=== PATIENT | male | born 1955 | race Hispanic/Latino ===

== ENCOUNTER 2018-12-15 13:25 | Inpatient (IN) | payer MEDICARE | END 2018-12-19 18:29 | disposition home or self-care (01) | LOC: EDH 13:25 → 2DH 12-16 11:28 → EDHIP 15:15 | PROC: B2111ZZ Fluoroscopy of Multiple Coronary Arteries using Low Osmolar Contrast (ICD-10-PCS; principal; ~2018-12-15) | PROC: B3101ZZ Fluoroscopy of Thoracic Aorta using Low Osmolar Contrast (ICD-10-PCS; ~2018-12-15) | DX: I11.9 Hypertensive heart disease without heart failure (principal); F17.200 Nicotine dependence, unspecified, uncomplicated ==

== ENCOUNTER 2019-07-30 18:42 | Emergency (ER) | payer OTHER ==
[~2019-07-30 18:42] MED LIST: ASPI-891 PO; ATOR40TA69 PO; LOSA50TA2 PO; METO50 PO
[2019-07-30 19:14] LABS: APPEARANCE,URINE Clear (CLEAR); BILIRUBIN,URINE Negative (NEGATIVE); COLOR,URINE Yellow (YELLOW); GLUCOSE, URINE (UA) Negative (NEGATIVE); KETONES,URINE Negative (NEGATIVE); LEUKOCYTE ESTERASE ,URINE Negative (NEGATIVE); NITRATE,URINE Negative (NEGATIVE); OCCULT BLOOD,URINE Negative (NEGATIVE); PROTEIN,URINE Trace mg/dL (NEGATIVE)
[2019-07-30 19:36] LABS: BACTERIA,URINE Few /HPF (None Seen); RBC,URINE 0-1 /HPF (0-1)
[2019-07-30 19:37] LABS: MUCUS,URINE Moderate LPF (None Seen); SQUAMOUS EPITHELIAL CELL,UR Few /HPF (0-2)
[2019-07-30 19:39] LABS: BASOPHILS % (AUTO) 0.6 % (0.0-5.0); EOSINOPHILS % (AUTO) 2.8 % (0.0-8.0); HEMATOCRIT 42.6 % (42-54); LYMPHOCYTES % (AUTO) 21.2 % (21.0-51.0); MEAN CORPUSCULAR HEMOGLOBIN 26.7 pg (27.0-33.0); MEAN CORPUSCULAR HGB CONC 33.7 g/dL (32.0-36.0); MEAN CORPUSCULAR VOLUME 79.4 fL (79-99); MONOCYTES % (AUTO) 7.2 % (3.0-13.0); NEUTROPHILS % (AUTO) 68.2 % (40.0-77.0); NUCLEATED RED BLOOD CELLS 0.1 % (0.0-0.19); PLATELET COUNT (AUTO) 181 K/uL (130-400); RED BLOOD CELL COUNT(AUTO) 5.37 MIL/uL (4.50-6.20); RED CELL DISTRIBUTION WIDTH 14.8 % (11.0-15.5); WHITE BLOOD COUNT (AUTO) 8.9 K/uL (4.8-10.8)
[2019-07-30 19:49] LABS: CREATININE 1.3 mg/dL (0.5-1.5); POTASSIUM 3.6 mmol/L (3.5-5.1)
[2019-07-30 19:55] LABS: ALBUMIN 4.1 g/dL (3.5-5.0); BILIRUBIN,DIRECT 0.1 mg/dL (0.0-0.3); BILIRUBIN,TOTAL 0.5 mg/dL (0.2-1.0); TOTAL PROTEIN, SERUM 8.4 g/dL (6.0-8.3)
[2019-07-30] MEDS ORDERED: SODIUM CHLORIDE 0.9% 1000ML 1,000 ML IV ONE (20:03)
[2019-07-30] MEDS ORDERED: ACETAMINOPHEN 325 MG TAB ONE (21:52)
== END 2019-07-30 23:19 | disposition home or self-care (01) ==
LOC: EDH 18:42
DX: E86.0 Dehydration (principal); R53.1 Weakness; R19.7 Diarrhea, unspecified
CPT/HCPCS: 36415; 71046; 80048; 80076; 81001; 82550; 83880; 84484 ×2; 85025; 93005 ×2; 96360; 96361; 99285; J7030

== ENCOUNTER → 2019-11-24 | Outpatient (CLI) | payer OTHER, MEDICARE | END | disposition home or self-care (01) | LOC: SHCH 09:24 | PROVIDERS: ATTEND Internal Medicine Cardiovascular Disease | DX: I65.23 Occlusion and stenosis of bilateral carotid arteries (principal); I73.9 Peripheral vascular disease, unspecified | CPT/HCPCS: 93880 ==

== ENCOUNTER → 2020-01-03 | Outpatient (CLI) | payer OTHER, MEDICARE | END | disposition home or self-care (01) | LOC: SHCH 10:05 | PROVIDERS: ATTEND Internal Medicine Cardiovascular Disease | DX: I10 Essential (primary) hypertension (principal) | CPT/HCPCS: 93306; 93356 ==

== ENCOUNTER → 2020-08-23 | Outpatient (CLI) | payer OTHER | END | disposition home or self-care (01) | LOC: RAH 12:55 | PROVIDERS: ATTEND Internal Medicine Cardiovascular Disease | DX: Z13.6 Encounter for screening for cardiovascular disorders (principal) | CPT/HCPCS: 75571 ==

== ENCOUNTER → 2020-10-09 | Outpatient (CLI) | payer OTHER, MEDICARE ==
[~2020-10-09] MED LIST changes: +IOHEXOL-350 50ML VIAL IV ONE
== END | disposition home or self-care (01) ==
LOC: RAH 07:50
PROVIDERS: ATTEND Internal Medicine Cardiovascular Disease
DX: I74.8 Embolism and thrombosis of other arteries (principal); I65.23 Occlusion and stenosis of bilateral carotid arteries; I73.9 Peripheral vascular disease, unspecified; Z95.1 Presence of aortocoronary bypass graft
CPT/HCPCS: 70498; Q9967

== ENCOUNTER → 2020-11-08 | Outpatient (CLI) | payer OTHER, MEDICARE ==
[~2020-11-08] MED LIST changes: -IOHEXOL-350 50ML VIAL IV ONE
== END | disposition home or self-care (01) ==
LOC: SHCH 14:26
PROVIDERS: ATTEND Internal Medicine Cardiovascular Disease
DX: I73.9 Peripheral vascular disease, unspecified (principal)
CPT/HCPCS: 93925

== ENCOUNTER 2021-06-12 05:38 | Day surgery (SDC) | payer OTHER ==
[~2021-06-12] VITALS: Ht 167.6 cm; Wt 78.9 kg
[2021-06-12] MEDS ORDERED: 0.9%NACL 1000ML 1,000 ML IV ONE (06:32)
[2021-06-12 06:37] VITALS: BP 122/50
[2021-06-12] MEDS ORDERED: ASCO500C18 PO (07:12)
[2021-06-12] MEDS ORDERED: PROPOFOL 10 MG/ML 20ML VIAL IV ONE ×2 (07:12)
[2021-06-12] MEDS ORDERED: LIDOCAINE PF 100MG/5ML (2%) SYRINGE 5ML ONE (07:12)
[2021-06-12] MEDS ORDERED: SERT-440 PO (07:12)
[2021-06-12] MEDS ORDERED: HYDR25TA PO (07:12)
[2021-06-12] MEDS ORDERED: MULT-1203 PO (07:12)
[2021-06-12] MEDS ORDERED: OMEG-148 PO (07:12)
[2021-06-12] MEDS ORDERED: MV-M1TAB20 PO (07:12)
[2021-06-12] MEDS ORDERED: LIDOCAINE HCL 1% 20 ML VIAL ONE (07:13)
[2021-06-12] MEDS ORDERED: GLYCOPYRROLATE 1 MG/5 ML SYRINGE ONE (07:14)
[2021-06-12] MEDS ORDERED: EPHEDRINE SULFATE 50 MG/ML AMPULE ONE (07:25)
[2021-06-12 07:40] VITALS: BP 99/46
[2021-06-12 07:45] VITALS: BP 123/56
[2021-06-12 08:00] VITALS: BP 128/55
== END 2021-06-12 08:10 | disposition home or self-care (01) ==
LOC: ENDO 05:38 → DAH 05:38 → ENDO 08:10
PROVIDERS: ATTEND Internal Medicine Gastroenterology
DX: Z12.11 Encounter for screening for malignant neoplasm of colon (principal); K62.1 Rectal polyp; K29.70 Gastritis, unspecified, without bleeding; D64.9 Anemia, unspecified; I10 Essential (primary) hypertension; F41.9 Anxiety disorder, unspecified; R14.0 Abdominal distension (gaseous); E78.2 Mixed hyperlipidemia; I25.10 Atherosclerotic heart disease of native coronary artery without angina pectoris; Z79.82 Long term (current) use of aspirin; Z20.822 Contact with and (suspected) exposure to COVID-19; Z79.899 Other long term (current) drug therapy
CPT/HCPCS: 43239; 45380; 87635; 88305; 88342; A4215 ×2; A4221; A4222; A4223; A4606; A4620; A4657; A4663; C9803; J2001; J2704 ×2; J3490 ×2; J7030

== ENCOUNTER → 2023-02-21 | Outpatient (CLI) | payer OTHER, MEDICARE ==
[~2023-02-21] MED LIST changes: +ASCO500C18 PO; +HYDR25TA PO; +MULT-1203 PO; +MV-M1TAB20 PO; +OMEG-148 PO; +SERT-440 PO
== END | disposition home or self-care (01) ==
LOC: SHCH 13:09
PROVIDERS: ATTEND Internal Medicine Cardiovascular Disease
DX: I11.9 Hypertensive heart disease without heart failure (principal); I25.110 Atherosclerotic heart disease of native coronary artery with unstable angina pectoris; E78.5 Hyperlipidemia, unspecified; Z95.2 Presence of prosthetic heart valve
CPT/HCPCS: 93306

== ENCOUNTER → 2023-03-04 | Outpatient (CLI) | payer OTHER, MEDICARE | END | disposition home or self-care (01) | LOC: SHCH 10:43 | PROVIDERS: ATTEND Internal Medicine Cardiovascular Disease | DX: I65.22 Occlusion and stenosis of left carotid artery (principal); I25.10 Atherosclerotic heart disease of native coronary artery without angina pectoris; Z95.828 Presence of other vascular implants and grafts | CPT/HCPCS: 93880 ==

== ENCOUNTER → 2023-03-21 | Outpatient (CLI) | payer OTHER, MEDICARE ==
[~2023-03-21] MED LIST changes: +LOSA-418 PO; -LOSA50TA2 PO
[2023-03-21 12:18] LABS: ALBUMIN 4.2 g/dL (3.5-5.0); CREATININE 1.2 mg/dL (0.5-1.5); TOTAL PROTEIN, SERUM 8.2 g/dL (6.0-8.3)
== END | disposition home or self-care (01) ==
LOC: LAB 08:29
PROVIDERS: ATTEND Internal Medicine Cardiovascular Disease
DX: I65.23 Occlusion and stenosis of bilateral carotid arteries (principal)
CPT/HCPCS: 36415; 80053

== ENCOUNTER → 2023-03-31 | Outpatient (CLI) | payer OTHER, MEDICARE ==
[~2023-03-31] MED LIST changes: +IOHEXOL 350 MG/ML 100ML INFUS..BTL IV ONE
== END | disposition home or self-care (01) ==
LOC: RAH 09:17
PROVIDERS: ATTEND Internal Medicine Cardiovascular Disease
DX: I65.23 Occlusion and stenosis of bilateral carotid arteries (principal)
CPT/HCPCS: 70498; Q9967

== ENCOUNTER 2023-05-27 10:17 | Inpatient (IN) | payer OTHER, MEDICARE ==
[~2023-05-27] VITALS: Ht 167.6 cm; Wt 77.5 kg
[~2023-05-27 10:17] MED LIST changes: -IOHEXOL 350 MG/ML 100ML INFUS..BTL IV ONE
[2023-05-27 10:39] LABS: BASOPHILS % (AUTO) 0.4 % (0.0-5.0); EOSINOPHILS % (AUTO) 3.7 % (0.0-8.0); HEMATOCRIT 35.7 % (42-54); MEAN CORPUSCULAR HEMOGLOBIN 26.4 pg (27.0-33.0); MEAN CORPUSCULAR HGB CONC 33.3 g/dL (32.0-36.0); MEAN CORPUSCULAR VOLUME 79.3 fL (79-99); MONOCYTES % (AUTO) 5.4 % (3.0-13.0); NEUTROPHILS % (AUTO) 70.1 % (40.0-77.0); PLATELET COUNT (AUTO) 203 K/uL (130-400); RED CELL DISTRIBUTION WIDTH 12.9 % (11.0-15.5); WHITE BLOOD COUNT (AUTO) 8.5 K/uL (4.8-10.8)
[2023-05-27 10:58] LABS: ALBUMIN 3.6 g/dL (3.5-5.0); CREATININE 1.1 mg/dL (0.5-1.5); POTASSIUM 3.3 mmol/L (3.5-5.1); TOTAL PROTEIN, SERUM 7.5 g/dL (6.0-8.3)
[2023-05-27] MEDS ORDERED: ENOXAPARIN SODIUM 80 MG/0.8 ML SQ ONE (11:30)
[2023-05-27] MEDS ORDERED: NITROGLYCERIN 1GM OINT 1 INCH/1GM TD ONE (11:30)
[2023-05-27] MEDS ORDERED: MAGNESIUM 2GM PREMIX 50ML 50 ML IV PRN (12:00)
[2023-05-27] MEDS ORDERED: POTASSIUM CHLORIDE 10% ELIXIR 20 MEQ/15 ML UDCUP PO PRN (12:00)
[2023-05-27] MEDS ORDERED: POTASSIUM CHLORIDE 20MEQ/100ML 100 ML IV PRN (12:00)
[2023-05-27] MEDS ORDERED: ACETAMINOPHEN 325 MG TAB PO PRN ×2 (12:00)
[2023-05-27] MEDS ORDERED: ONDANSETRON 4MG INJ IV PRN (12:00)
[2023-05-27] MEDS ORDERED: KCL 20 MEQ ERTAB PO PRN (12:00)
[2023-05-27] MEDS ORDERED: LACTULOSE 20 GM/30 ML UDCUP PO PRN (12:00)
[2023-05-27] MEDS ORDERED: METO50TA18 PO (12:23)
[2023-05-27] MEDS ORDERED: ASPI-1197 PO (12:23)
[2023-05-27] MEDS ORDERED: CLOP-31 PO (12:23)
[2023-05-27] MEDS ORDERED: HYDR25TA PO (12:23)
[2023-05-27] MEDS ORDERED: LOSA50TA64 PO (12:23)
[2023-05-27] MEDS ORDERED: SERT-440 PO (12:23)
[2023-05-27 12:26] LABS: APPEARANCE,URINE CLEAR (CLEAR); BILIRUBIN,URINE NEGATIVE (NEGATIVE); COLOR,URINE YELLOW (YELLOW); GLUCOSE, URINE (UA) NEGATIVE (NEGATIVE); KETONES,URINE NEGATIVE (NEGATIVE); LEUKOCYTE ESTERASE ,URINE NEGATIVE Leu/uL (NEGATIVE); NITRATE,URINE NEGATIVE (NEGATIVE); OCCULT BLOOD,URINE NEGATIVE (NEGATIVE); PH,URINE 5.5 (5.0-8.0); PROTEIN,URINE 20 mg/dL (NEGATIVE); UROBILINOGEN,URINE 0.2 mg/dL (0.2-1.0)
[2023-05-27 12:30] LABS: HEMOGLOBIN A1C 5.8 % (4.0-6.0)
[2023-05-27 12:47] LABS: MUCUS,URINE RARE LPF (None Seen)
[2023-05-27 12:55] LABS: INR 0.96 (0.85-1.15); PROTHROMBIN TIME 11.2 SEC (9.6-11.6)
[2023-05-27 12:57] LABS: PARTIAL THROMBOPLASTIN TIME 30.9 SEC (26.3-35.5)
[2023-05-27] MEDS: INSULIN HUMULIN R 100 UNIT/ML 3ML SQ SCH ×3 (16:30→21:15)
[2023-05-27 20:50] VITALS: BP 122/58; PULSE 50; RESP 20
[2023-05-27] MEDS ORDERED: ATORVASTATIN 20 MG TABLET PO SCH (21:00)
[2023-05-27 23:38] VITALS: BP 115/50; PULSE 59; RESP 20
[2023-05-28 04:00] VITALS: BP 116/51; PULSE 54; RESP 20
[2023-05-28 05:32] LABS: BASOPHILS % (AUTO) 0.3 % (0.0-5.0); EOSINOPHILS % (AUTO) 3.6 % (0.0-8.0); LYMPHOCYTES % (AUTO) 27.1 % (21.0-51.0); MEAN CORPUSCULAR HEMOGLOBIN 26.5 pg (27.0-33.0); MEAN CORPUSCULAR VOLUME 80.1 fL (79-99); MONOCYTES % (AUTO) 8.4 % (3.0-13.0); NEUTROPHILS % (AUTO) 60.3 % (40.0-77.0); PLATELET COUNT (AUTO) 173 K/uL (130-400); RED BLOOD CELL COUNT(AUTO) 4.12 MIL/uL (4.50-6.20); WHITE BLOOD COUNT (AUTO) 8.7 K/uL (4.8-10.8)
[2023-05-28 05:57] LABS: CREATININE 1.1 mg/dL (0.5-1.5); POTASSIUM 3.3 mmol/L (3.5-5.1)
[2023-05-28] MEDS ORDERED: DOCUSATE SODIUM 100 MG CAP PO PRN (06:30)
[2023-05-28 08:00] VITALS: BP 137/57; PULSE 53; RESP 18
[2023-05-28] MEDS ORDERED: PANTOPRAZOLE 40 MG/VIAL IVP SCH (09:00)
[2023-05-28] MEDS ORDERED: ENOXAPARIN SODIUM 40 MG/0.4 ML SYRINGE SQ SCH (09:00)
[2023-05-28] MEDS ORDERED: ASPIRIN 81MG CHEW TAB PO SCH (09:00)
[2023-05-28] MEDS ORDERED: CLOPIDOGREL 75MG TAB PO SCH (09:00)
== END 2023-05-28 10:15 | disposition home or self-care (01) | DRG 282 ==
LOC: EDH 10:17 → EDHIP 11:46 → 4DH 20:49
PROVIDERS: ADMIT Hospitalist; ATTEND Hospitalist
DX: I21.4 Non-ST elevation (NSTEMI) myocardial infarction (principal); E87.6 Hypokalemia; E11.9 Type 2 diabetes mellitus without complications; F17.200 Nicotine dependence, unspecified, uncomplicated; K59.09 Other constipation; F32.A Depression, unspecified; E78.00 Pure hypercholesterolemia, unspecified; Z95.1 Presence of aortocoronary bypass graft
CPT/HCPCS: 36415; 71045; 74018; 80048; 80053; 80061; 81001; 82948; 83036; 83880; 84484; 85025; 85610; 85730; 93005; C9113; G0378; J1650

== ENCOUNTER → 2023-06-16 | Outpatient (CLI) | payer OTHER, MEDICARE ==
[~2023-06-16] MED LIST changes: -ASCO500C18 PO; +ASPI-1197 PO; -ASPI-891 PO; -ATOR40TA69 PO; +CLOP-31 PO; -LOSA-418 PO; +LOSA50TA64 PO; -METO50 PO; +METO50TA18 PO; -MULT-1203 PO; -MV-M1TAB20 PO; -OMEG-148 PO
[2023-06-16 12:22] LABS: CREATININE 1.1 mg/dL (0.5-1.5); POTASSIUM 3.3 mmol/L (3.5-5.1)
== END | disposition home or self-care (01) ==
LOC: LAB 08:16
PROVIDERS: ATTEND Physician Assistant
DX: I10 Essential (primary) hypertension (principal); E78.5 Hyperlipidemia, unspecified
CPT/HCPCS: 36415; 80048

== ENCOUNTER → 2024-04-29 | Outpatient (CLI) | payer MEDICARE ==
[~2024-04-29] MED LIST changes: +AMLO-257 PO; +APIX5TAB PO; -ASPI-1197 PO; +ATOR20TA65 PO; -HYDR25TA PO; -METO50TA18 PO; +NITR0.4T50 SL; +SERT-439 PO; -SERT-440 PO
[2024-04-29 12:38] LABS: ALBUMIN 3.9 g/dL (3.5-5.0); BILIRUBIN,TOTAL 0.4 mg/dL (0.2-1.0); CREATININE 1.1 mg/dL (0.5-1.3); POTASSIUM 4.7 mmol/L (3.5-5.1); TOTAL PROTEIN, SERUM 7.8 g/dL (6.0-8.3)
== END | disposition home or self-care (01) ==
LOC: LAB 08:19
PROVIDERS: ATTEND Internal Medicine Cardiovascular Disease
DX: I10 Essential (primary) hypertension (principal); I65.23 Occlusion and stenosis of bilateral carotid arteries
CPT/HCPCS: 36415; 80053

== ENCOUNTER → 2024-05-10 | Outpatient (CLI) | payer MEDICARE ==
[~2024-05-10] MED LIST changes: +IOHEXOL 350 MG/ML 100ML INFUS..BTL IV ONE
== END | disposition home or self-care (01) ==
LOC: RAH 11:00
PROVIDERS: ATTEND Internal Medicine Cardiovascular Disease
DX: I65.23 Occlusion and stenosis of bilateral carotid arteries (principal)
CPT/HCPCS: 70498; Q9967

== ENCOUNTER → 2024-10-22 | Outpatient (CLI) | payer MEDICARE ==
[~2024-10-22] MED LIST changes: -IOHEXOL 350 MG/ML 100ML INFUS..BTL IV ONE
[2024-10-22 13:17] LABS: CHOLESTEROL 126 mg/dL (<200); HDL CHOLESTEROL 48 mg/dL (29-71); LDL DIRECT 64 mg/dL (0-99); TRIGLYCERIDES 127 mg/dL (30-200)
== END | disposition home or self-care (01) ==
LOC: LAB 09:15
PROVIDERS: ATTEND Internal Medicine Cardiovascular Disease
DX: I10 Essential (primary) hypertension (principal)
CPT/HCPCS: 36415; 80061

== ENCOUNTER 2025-07-16 11:50 | Emergency (ER) | payer MEDICARE, OTHER ==
[~2025-07-16] VITALS: Ht 167.6 cm; Wt 76.2 kg
--- NOTE | 2025-07-16 11:56 | ERN ---
ED Note History of Present Illness Stated Complaint: LT THUMB LACERATION Chief Complaint: Laceration/Avulsion Time Seen by MD: 11:53 Dictation: PATIENT IS A 69-YEAR-OLD MALE HERE WITH A LACERATION TO THE LEFT PALMAR THUMB WITH A KNIFE ONSET 1 HOUR PRIOR TO ARRIVAL. NO BLEEDING NO NUMBNESS NO TINGLING. STATES HIS LAST TETANUS SHOT WAS FOUR YEARS AGO. NO ACTIVE BLEEDING Allergies: Coded Allergies: No Known Allergies (Verified Allergy, Unknown, 12/15/18) No Known Drug Allergies (Unverified Allergy, Unknown, 07/30/19) Home Meds Active Scripts Nitroglycerin (Nitroglycerin) 0.4 Mg Tab.subl, 0.4 MG SL [id number] PRN for chest pain, #30 TAB.SL 1 Refill Prov:AUDREY PETE MD 03/15/24 Apixaban (Eliquis) 5 Mg Tablet, 5 MG PO BID for 30 Days, #60 TAB 1 Refill Prov:AUDREY PETE MD 03/15/24 Reported Medications Amlodipine Besylate (Amlodipine Besylate) 5 Mg Tablet, 5 MG PO DAILY, TAB 03/13/24 Atorvastatin Calcium (Atorvastatin Calcium) 20 Mg Tablet, 40 MG PO HS, TAB 03/13/24 Sertraline HCl (Sertraline HCl) 50 Mg Tablet, 50 MG PO DAILY, TAB 03/13/24 Clopidogrel Bisulfate (Plavix) 75 Mg Tablet, 75 MG PO DAILY, TAB 05/27/23 Losartan Potassium (Losartan Potassium) 50 Mg Tablet, 50 MG PO DAILY, TAB 05/27/23 Past Medical History Past Medical History: Hypertension, Other Surgical History: Other Surgical History Other: HEART SX RN Note Reviewed/Agreed w/PFSH: Yes Review of System Dictation CONSTITUTIONAL: NEGATIVE EXCEPT FOR HPI HEAD/FACE: NEGATIVE EXCEPT FOR HPI EENT: NEGATIVE EXCEPT FOR HPI RESPIRATORY: NEGATIVE EXCEPT FOR HPI GASTROINTESTINAL/ABDOMINAL: NEGATIVE EXCEPT FOR HPI GENITOURINARY: NEGATIVE EXCEPT FOR HPI MUSCULOSKELETAL: NEGATIVE EXCEPT FOR HPI INTEGUMENTARY: NEGATIVE EXCEPT FOR HPI LACERATIONS LATERAL ASPECT OF DISTAL LEFT THUMB AND DISTAL LEFT 3RD FINGER NEUROLOGICAL/PSYCH: NEGATIVE EXCEPT FOR HPI HEMATOLOGIC/LYMPHATIC: NEGATIVE EXCEPT FOR HPI ALL SYSTEMS NEGATIVE, EXCEPT NOTED ABOVE. 13 POINT REVIEW OF SYSTEMS ASSESSED AND ALL NEGATIVE EXCEPT FOR ABOVE. Initial Vital Sign VS Vital Signs Date Time Temp Pulse Resp B/P (MAP) Pulse Ox O2 Delivery O2 Flow Rate FiO2 07/16/25 11:52 98.6 60 20 103/47 99 Room Air 0 07/16/25 12:12 21 Physical Exam Dictation VITAL SIGNS REVIEWED GENERAL APPEARANCE: ALERT, ORIENTED X 3, MILD ACUTE DISTRESS, WELL DEVELOPED, NOURISHED. HEAD AND FACE: NON-TRAUMATIC. EYES: PERRL, PINK CONJUNCTIVAS, EYELID NO TRAUMA, ANTERIOR CHAMBER WITH ARCUS SENILIS. EARS: PINNAS INTACT AND NO SIGNS OF TRAUMA OR ERYTHEMA EAR CANALS CLEAR AND NO DISCHARGE TM NO ERYTHEMA NOSE: NO DISCHARGE, NO BLEEDING. OROPHARYNX: MOUTH NORMAL, TONGUE PINK, PHARYNX CLEAR,NO ERYTHEMA, TONSILS NO EXUDATES, NO ABSCESSES NOTED, MUCOUS MEMBRANE MOIST NECK: SUPPLE, NON-TENDER, NO THYROMEGALY, NO MASSES, NO JVD, NO BRUITS BREAST:DEFERRED CHEST:NO TENDERNESS, NO CREPITUS, NO PARADOXICAL MOVEMENT, NO RETRACTIONS LUNGS:CLEAR, WELL-VENTILATED, SYMMETRIC, NO RALES, NO WHEEZING, NO RHONCHI, NO STRIDOR, GOOD BREATH SOUNDS BILATERALLY HEART: REGULAR RATE, REGULAR RHYTHM, NO MURMUR, NO GALLOPS VASCULAR: NO PERIPHERAL EDEMA, ABDOMEN: SOFT, POSITIVE BOWEL SOUNDS, NONDISTENDED, NO GUARDING, NONTENDER, NO REBOUND, NO MASSES NO HEPATOMEGALY, NO SPLENOMEGALY, NO LINDSAY'S SIGN, NO HERNIAS. RECTAL: DEFERRED GENITAL: DEFERRED NEUROLOGICAL: NORMAL SPEECH, MOTOR FUNCTION INTACT, SENSORY FUNCTION INTACT MUSCULOSKELETAL: NECK NONTENDER, FULL RANGE OF MOTION, BACK NONTENDER, FULL RANGE OF MOTION, EXTREMITIES: NONTENDER, FULL RANGE OF MOTION SKIN: COLOR PINK, 3.7 CM LACERATION TO LATERAL ASPECT DISTAL LEFT THUMB 1 CM SUPERFICIAL LACERATION TO DISTAL LEFT 3RD FINGER REPAIR REQUIRED LYMPHATIC: DEFERRED Results (Laboratory/Radiology) Labs Reviewed?: Yes ED Course ED Course Orders Procedure Category Date Status Time Neomy PHA 07/16/25 Complete Sulf/Bacitra/Polymyxin 12:00 Ibuprofen 800 Mg Tab PHA 07/16/25 Complete (Motrin) 12:00 Lidocaine Hcl 1% 20ml PHA 07/16/25 In Process Vial (Lidocaine Hc 12:00 Current Medications Medications (Trade) Dose Ordered Sig/Dennys Route PRN Reason Start Time Stop Time Status Last Admin Dose Admin Ibuprofen (moTRIN) 800 mg ONCE ONCE PO 07/16/25 12:00 07/16/25 12:01 DC 07/16/25 12:11 Lidocaine HCl (Lidocaine HCl 1% 20ml Vial) 10 ml ONCE INJ 07/16/25 12:00 08/15/25 11:59 07/16/25 12:10 Neomycin/ Polymyxin/ Bacitracin (Triple Antibiotic Ointment) 1 appl ONCE ONCE TP 07/16/25 12:00 07/16/25 12:01 DC 07/16/25 12:10 Vital Signs Date Time Temp Pulse Resp B/P (MAP) Pulse Ox O2 Delivery O2 Flow Rate FiO2 07/16/25 12:12 98.4 60 16 104/50 98 Room Air* 0 21 07/16/25 11:52 98.6 60 20 103/47 99 Room Air 0 1340/PATIENT STATES NOW HE CAN NOT REMEMBER WHEN HE HAD HIS LAST TETANUS SHOT A ND WAS LIKE IT UPDATED. LACERATION WAS REPAIR TO LEFT THUMB PATIENT IS AWARE NO LACERATION REPAIR INDICATED TO 3RD FINGER. WOUND CARE INSTRUCTIONS GIVEN NEUROVASCULAR CMS INTACT TO FINGER Medical Decision Making MDM MEDICAL DISCHARGE MAKING BASED ON TETANUS UPDATE LACERATION REPAIR TO LEFT THUMB PROPHYLAXIS ANTIBIOTICS GIVEN WOUND CARE INSTRUCTIONS Procedure Procedure Dictation: PROCEDURE EXPLAINED TO PATIENT HE AGREED TO PROCEED DIGITAL BLOCK TO LEFT 3RD FINGER WITH 3 ML LIDOCAINE LACERATION WAS CLEANSED WITH WOUND CLEANSER NO DEBRIDEMENT LACERATION CLOSED WITH SIX 4-0 PROLENE SIMPLE INTERRUPTED SINGLE-LAYER CLOSURE SUPERFICIAL LACERATION TO DISTAL 3RD FINGER DOES NOT REQUIRE REPAIR DX & DISP Disposition: Discharge Departure Impression: Primary Impression: Laceration of finger of left hand Condition: Stable Scripts Cephalexin (Cephalexin) 500 Mg Tablet 1 TAB PO TID for 10 Days, #30 TAB 0 Refills Prov: VIKRAM ALONZO NP 07/16/25 Ibuprofen (Ibuprofen) 800 Mg Tablet 800 MG PO Q6H PRN for PAIN, #3 30 Prov: VIKRAM ALONZO NP 07/16/25 Additional Instructions: FOLLOW-UP WITH PRIMARY CARE PROVIDER IN 1 TO 2 DAYS. TAKE MEDICATIONS D IRECTED HERE IN THE EMERGENCY ROOM. OKAY TO CONTINUE HOME MEDICATIONS UNLESS OTHERWISE DISCUSSED DURING YOUR VISIT IN THE EMERGENCY ROOM TODAY. RETURN TO YOUR NEAREST EMERGENCY ROOM IF SYMPTOMS WORSEN OR IF THERE IS NO IMPROVEMENT. CALL 911 IF YOU NEED IMMEDIATE ASSISTANCE. TAKE TYLENOL OR MOTRIN [id number] NEEDED AND IF NO CONTRAINDICATIONS ARE PRESENT. INCREASE ORAL HYDRATION. A WOUND CULTURE OR URINE CULTURE WAS ORDERED HERE IN THE EMERGENCY ROOM DEPARTMENT PLEASE FOLLOW-UP WITH PRIMARY CARE PROVIDER AND ADVISE THEM TO GET REPEAT PORTS FROM OUR FACILITY. IF YOU HAD ANY FARIDA WRAP/SPLINTS THAT WERE APPLIED HERE, PLEASE DO NOT REMOVE THEM UNTIL YOU SEE YOUR PRIMARY CARE OR SPECIALTY. KEEP LACERATION REPAIR CLEAN AND DRY. APPLY TRIPLE ANTIBIOTIC OINTMENT/[id number] 3 TIMES A DAY FOR FIVE DAYS TO LACERATIONS. TAKE ANTIBIOTICS DIRECTED UNTIL GONE. SUTURES OUT IN 10 DAYS Referrals: MRIANDA SRINIVASAN MD (PCP) Time of Disposition: 13:43 I have reviewed the case, and I agree with, Diagnosis and Plan VIKRAM ALONZO NP Jul 16, 2025 11:56
[2025-07-16] MEDS: NEOMY SULF/BACITRA/POLYMYXIN B 1 EACH PACKET TP ONE (12:10)
[2025-07-16] MEDS: LIDOCAINE HCL 1% 20 ML VIAL INJ SCH (12:10)
--- NOTE | 2025-07-16 13:34 | NUR ---
3.6 cm lact closed with 6 sutures to be removed 7-10 days wouns clean and dry bandaged with non adhearant gauze
[2025-07-16] MEDS ORDERED: IBUP-2071 PO (13:44)
[2025-07-16] MEDS ORDERED: CEPH500T PO (13:44)
[2025-07-16 13:57] VITALS: BP 112/54; PULSE 62; RESP 16; TEMP 98.4; O2SAT 98
== END 2025-07-16 14:00 | disposition home or self-care (01) ==
LOC: EDH 11:50
DX: S61.012A Laceration without foreign body of left thumb without damage to nail, initial encounter (principal); S61.213A Laceration without foreign body of left middle finger without damage to nail, initial encounter; I10 Essential (primary) hypertension; Z79.01 Long term (current) use of anticoagulants; Z79.02 Long term (current) use of antithrombotics/antiplatelets; Z79.899 Other long term (current) drug therapy; W26.0XXA Contact with knife, initial encounter; Y93.89 Activity, other specified; Y92.89 Other specified places as the place of occurrence of the external cause; Y99.8 Other external cause status
CPT/HCPCS: 12002; 90471; 90714; 99283; 99284